=== PATIENT | male | born 1935 | race Caucasian/White ===

== ENCOUNTER → 2019-04-01 | Day surgery (SDC) | payer MEDICARE ==
[2019-03-28 11:06] LABS: BASOPHILS % 0.6 % (0.0-1.0); EOSINOPHILS % 0.6 % (0.0-6.0); HEMOGLOBIN 12.3 g/dL (14.0-18.0); LYMPHOCYTES # (AUTO) 1.4 (1.0-3.2); MEAN CORPUSCULAR HEMOGLOBIN 31.2 pg (28-32); MEAN CORPUSCULAR HGB CONC 34.2 g/dL (31-35); MEAN CORPUSCULAR VOLUME 91.4 fL (81-99); MONOCYTES # (AUTO) 0.6 (0.2-0.8); MONOCYTES % 8.4 % (4.4-11.3); NEUTROPHILS # (AUTO) 4.8 (2.1-6.9); NEUTROPHILS % 69.1 % (38.7-80.0); PLATELET COUNT 155 x10e3/uL (140-360); RED BLOOD COUNT 3.94 x10e6/uL (4.3-5.7)
[2019-03-28 11:27] LABS: INR 0.99; PROTHROMBIN TIME 13.6 seconds (11.9-14.5)
[2019-03-28 11:35] LABS: ALANINE AMINOTRANSFERASE 15 IU/L (0-55); ALBUMIN 4.1 g/dL (3.5-5.0); ALBUMIN/GLOBULIN RATIO 1.2 (0.8-2.0); ALKALINE PHOSPHATASE 69 IU/L (40-150); ANION GAP 14.4 mmol/L (8-16); BLOOD UREA NITROGEN 15 mg/dL (7-26); BUN/CREATININE RATIO 16 (6-25); CALCIUM 10.2 mg/dL (8.4-10.2); CARBON DIOXIDE 27 mmol/L (22-29); CHLORIDE 102 mmol/L (98-107); CREATININE, SERUM 0.92 mg/dL (0.72-1.25); EST GLOMERULAR FILTRATION RATE > 60 ML/MIN (60-); GLUCOSE 87 mg/dL (74-118); POTASSIUM 3.4 mmol/L (3.5-5.1); SODIUM 140 mmol/L (136-145)
[2019-03-28 11:36] LABS: CHOL/HDL RATIO 2.7 (3.9-4.7)
[~2019-04-01] VITALS: Ht 165.1 cm; Wt 62.6 kg
[~2019-04-01] MED LIST: ALPRAZOLAM 0.5 MG TAB ONE; ARICEPT5 MG PO; ATORVASTATIN CA10 MG PO; CLOPIDOGREL75 MG PO; DIPHENHYDRAMINE HCL 25 MG CAP ONE; FENTANYL CITRATE/PF 100MCG/2 ML INJ ONE; FINASTERIDE5 MG PO; FLOMAX0.4 MG PO; HEPARIN SOD (PORCINE) 1000 UNIT/ML 30ML ONE; HEPARIN SOD/SOD CHLORIDE 2,000 ML ONE; HYDRALAZINE HCL25 MG PO; IOPAMIDOL 370 MG/ML 200 ML INFUS..BTL INJ ONE; LIDOCAINE HCL 2% LOCAL 20 ML VIAL ONE; MELOXICAM7.5 MG PO; METOPROLOL SUCC50 MG PO; MIDAZOLAM HCL 2 MG/2 ML VIAL ONE; MIRTAZAPINE7.5 MG PO; NAMENDA10 MG PO; PANTOPRAZOLE SO40 MG PO; PRESERVISION T1 EACH PO; SODIUM CHLORIDE 0.9% 1000ML 1,000 ML ONE; VERAPAMIL HCL 2.5 MG/ML 2 ML VIAL ONE
--- OUTSIDE RECORDS SUMMARY | 2019-04-01 11:07 | XMS REPORT | Clinical Summary ---
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 Last Filed Vital Signs Not on file Plan of Treatment Health Maintenance Due Date Last Done Comments SHINGLES VACCINES (#1) 1984 65+ PNEUMOCOCCAL VACCINE 1999 (1 of 2 - PCV13) INFLUENZA VACCINE 04/10/2019 Procedures Comments Procedure Name Priority Date/Time Associated Diagnosis CALPROTECTIN, STOOL Routine 07/27/2018 Chronic universal 11:31 AM TRAFFIC [employer]PERVIS[employer] ulcerative colitis (HCC) Benign hypertension Constipation, unspecified constipation type Diarrhea, unspecified type ESTIMATED GFR Routine 07/25/2018 4:00 PM TRAFFIC SUPER[employer]OR COMPREHENSIVE METABOLIC Routine 07/25/2018 Chronic ulcerative PANEL 4:00 PM TRAFFIC SUPER[employer] enterocolitis without complication (HCC) Essential hypertension, malignant Constipation, unspecified constipation type Diarrhea of presumed infectious origin SEDIMENTATION RATE Routine 07/25/2018 Chronic ulcerative 4:00 PM TRAFFIC SUPER[employer] enterocolitis without complication (HCC) Essential hypertension, malignant Constipation, unspecified constipation type Diarrhea of presumed infectious origin C-REACTIVE PROTEIN Routine 07/25/2018 Chronic ulcerative 4:00 PM TRAFFIC SUPER[employer]OR enterocolitis without complication (HCC) Essential hypertension, malignant Constipation, unspecified constipation type Diarrhea of presumed infectious origin HC COMPLETE BLD COUNT Routine 07/25/2018 Chronic ulcerative W/AUTO DIFF 4:00 PM TRAFFIC SUPERVISOR enterocolitis without complication (HCC) Essential hypertension, malignant Constipation, unspecified constipation type Diarrhea of presumed infectious origin after 03/31/2018 Results * Calprotectin, stool (07/27/2018 11:31 AM TRAFFIC SUPERVISOR) Calprotectin, 61 (H) <=50 ug/g [facility] stool Comment: INTERPRETIVE INFORMATION: Calprotectin, Fecal 50 ug/g or less: Normal 51-120 ug/g: Borderline elevated, test should be re-evaluated in 4-6 weeks. 121 ug/g or greater: Abnormal Performed by [facility], [address] [place] [id number] [email or web address], Wilder Gomez MD - Lab. Director Specimen Serum Performing Organization Address City/[facility]/Zipcode Phone Number [facility] [address] [place] [address] [facility] [address] [place] [address] * Estimated GFR (07/25/2018 4:00 PM TRAFFIC SUPERVISOR) Pathologist [facility] Estimated GFR 70 mL/min/1.73 m2 [facility] Comment: TENRIISM [facility] rpretation G1 >=90 Normal or high G2 60-89Mildly decreased [id number] Mildly to moderately decreased [id number] Moderately to severely decreased G4 15-29Severely decreased G5 <15Kidney failure The eGFR was calculated using the Chronic Kidney Disease Epidemiology Collaboration (CKD-EPI) equation. Interpretation is based on recommendations of the National Kidney Foundation-Kidney Disease Outcomes Quality Initiative (NKF-KDOQI) published in 2014. Specimen Plasma specimen Performing Organization Address City/State/Zipcode Phone Number [facility] DEPARTMENT OF [address] [place] [address] PATHOLOGY AND GENOMIC MEDICINE [facility] TENRIISM [address] [place] [address] * Sedimentation rate (07/25/2018 4:00 PM TRAFFIC SUPERVISOR) Pathologist [facility] Sedimentation 11 (H) 0 - 10 mm/hr [facility] Specimen Blood Performing Organization Address City/State/Zipcode Phone Number [facility] DEPARTMENT [address] [address] PATHOLOGY AND GENOMIC MEDICINE [address] * CBC with platelet and differential (07/25/2018 4:00 PM TRAFFIC SUPERVISOR) [facility] WBC 7.11 4.50 - 11.00 k/uL [facility] RBC 4.25 (L) 4.40 - 6.00 m/uL [facility] HGB 12.8 (L) 14.0 - 18.0 g/dL [facility] HCT 39.0 (L) 41.0 - 51.0 % [facility] MCV 91.8 82.0 - 100.[address] [facility] MCH 30.1 27.0 - 34.[address] [facility] MCHC 32.8 31.0 - 37.0 g/dL [facility] RDW - SD 46.5 37.0 - 55.[address] [facility] MPV 10.5 8.8 - 13.[address] [facility] Platelet count 155 150 - 400 k/uL [facility] Nucleated RBC 0.00 /[address] [facility] Neutrophils 68.1 39.0 - 69.0 % [facility] Lymphocytes 20.8 (L) 25.0 - 45.0 % [facility] Monocytes 9.4 0.0 - 10.0 % [facility] Eosinophils 0.8 0.0 - 5.0 % [facility] Basophils 0.6 0.0 - 1.0 % [facility] Immature 0.3Comment: "Immature 0.0 - 1.0 % [facility] granulocytes granulocytes" (promyelocytes, TENRIISM myelocytes, metamyelocytes) HOSPITAL Specimen Blood Performing Organization Address City/[facility]/Zipcode Phone Number [facility] DEPARTMENT OF [address] [place] [id number] PATHOLOGY AND GENOMIC MEDICINE [address] * C-reactive protein (07/25/2018 4:00 PM TRAFFIC SUPERVISOR) [facility] CRP <0.30 0.00 - 0.50 mg/dL [facility] Specimen Plasma specimen Performing Organization Address City/State/Zipcode Phone Number [facility] DEPARTMENT OF [address] [place] [phone] PATHOLOGY AND GENOMIC MEDICINE [address] * Comprehensive metabolic panel (07/25/2018 4:00 PM TRAFFIC SUPERVISOR) Sodium 138 135 - 148 mEq/L [facility] Potassium 3.1 (L) 3.5 - 5.0 mEq/L [facility] Chloride 96 (L) 98 - 112 mEq/L [facility] CO2 29 24 - 31 mEq/L [facility] Anion gap 13@ANIO 7 - 15 mEq/L [facility] BUN 17 8 - 23 mg/dL [facility] Creatinine 0.99 0.70 - 1.20 mg/dL [facility] Glucose 97 65 - 99 mg/dL [facility] Calcium 10.1 8.8 - 10.2 mg/dL [facility] Protein 7.3 6.3 - 8.3 g/dL [facility] Comment: [facility] HOSPITAL 4.6-7.0 g/dL 1 week 4.4-7.6 g/dL 7 months-1year 5.1-7.3 g/dL 1-2 years5.6-7 .5 g/dL >3 years6.0-8 .0 g/dL 18-150 6.3-8.3 g/dL Albumin 4.0 3.5 - 5.0 g/dL [facility] A/G ratio 1.2 0.7 - 3.8 [facility] Alkaline 75 40 - 129 U/L [facility] phosphatase [facility] AST 24 10 - 50 U/L [facility] ALT 24 5 - 50 U/L [facility] Total bilirubin 0.7 0.0 - 1.2 mg/dL [facility] Specimen Plasma specimen Performing Organization Address City/State/Zipcode Phone Number [facility] DEPARTMENT OF [address] [place] [address] PATHOLOGY [place] [address] HOSPITAL after 03/31/2018 Insurance Type Payer Benefit Subscriber ID Effective Phone Address Plan / Dates Group Commercial AARP AARP xxxxxxxxxxx [id number] SUPPLEMENT resent Medicare MEDICARE MEDICARE xxxxxxxxxxx 1999- [place], PART A AND Present [place] Advance Directives Patient has advance care planning documents on file. For more information, neymar lord contact: [place] [address] [place] [address]
[2019-04-01 11:45] VITALS: BP 172/78
[2019-04-01 15:35] VITALS: BP 170/78
--- NOTE | 2019-04-01 15:38 | NUR ---
9951 bedside report received from LUCILA Potter.[email or web address] [facility] diagnostic only tx RX for dc at 5pm today Dr Stafford pt. Alert oriented and appropriate, PERRLA, respirations even and unlabored to room air. Pulses x4 extremities equal and strong. Pedal pulses PT/DP x4 and marked. Cap fill brisk < 3 sec. Skin warm and dry integrity appears D/I IV 20g to left hand presents healthy w/o s/s of infiltration or complaint. Abdomen soft and supple. pt offered toileting, denies need to urinate or defecate. No personal affects with patient. Family Jose Raul Nephew at bedside. Pt and family verbalizes understanding of POC. Currently w/o complaint of pain or need. Assisted po intake. jose/lucila
[2019-04-01 15:45] VITALS: BP 172/79
[2019-04-01 16:00] VITALS: BP 170/76
[2019-04-01 16:30] VITALS: BP 173/75
--- NOTE | 2019-04-01 17:00 | NUR ---
[address] Stafford bp still a little high 178/93. Verified with manual cuff. Rt Groin site healthy HOB elevated ok to dc home on home medication. ds/rn
--- NOTE | 2019-04-01 18:00 | NUR ---
1800Pt meets DC criteria. Rt Mynx closure site assessed for s/s of complication and presence of hematoma. warm, dry, no discolor, and pulses present. IV removed from left hand. Distal tip appears intact. VS WNL. Pt denies pain, sob, or need at this time. Family at bedside Nephderek Blunt. Review of discharge paperwork and follow up instructions. verbalized understanding. Pt to wheelchair and transported to front of hospital. Transferred to private vehicle under own strength w/o incident with DC paperwork in hand. -ds/rn
--- NOTE | 2019-04-04 06:57 | Operative Report ---
DATE OF PROCEDURE: 04/01/2019 SURGEON: Compa Stafford MD INDICATIONS: Coronary artery disease, abnormal stress test. PROCEDURES PERFORMED: 1. Left heart catheterization, selective coronary angiography. 2. Deployment of right groin Mynx closure device. COMPLICATIONS: None. RECOMMENDATIONS: Medical therapy. DESCRIPTION OF PROCEDURE: Access was obtained in the right femoral artery. A 6-St Helenian sheath was placed. Coronary angiography demonstrated heavily calcified coronary vessels, left main 30% stenosis. Stent with mild in-stent restenosis in the proximal and mid left anterior descending artery. First diagonal branch was jailed within the stent with 80% ostial stenosis. Circumflex stent, 50% stenosis. Right coronary artery, 50% stenosis, remaining vessels and diffuse 30% to 50% stenosis. LV end-diastolic pressure of 22. No gradient across the aortic valve on pullback. Right groin repaired using Mynx closure device. The patient discharged home same day. MD JANEL Barron/MODL /[id number]
--- NOTE | 2019-05-13 11:01 | Operative Report ---
DATE OF PROCEDURE: 04/01/2019 SURGEON: Compa Stafford MD INDICATION: Coronary artery disease, abnormal stress test. PROCEDURES PERFORMED: 1. Left heart catheterization, selective coronary angiography. 2. Deployment of right groin Mynx closure device. COMPLICATIONS: None. RECOMMENDATIONS: Medical therapy. DESCRIPTION OF PROCEDURE: Access obtained in the right femoral artery. A 6-Welsh sheath was placed. Heavily calcified coronary vessels were noted. Left main 20% to 30% stenosis, stent in the left anterior descending artery was patent, 80% 1st diagonal artery stenosis, which was jailed within the stent as circumflex stent, 50% in-stent restenosis. Right coronary artery heavily calcified, 50% stenosis. LV end-diastolic pressure of 22. No intervention deemed necessary. Right groin was repaired using Mynx closure device. The patient was discharged home same day. Compa Stafford MD [facility]/MODL /[id number]
== END | disposition home or self-care (01) ==
LOC: CATH LAB 10:59
PROVIDERS: ATTEND Internal Medicine Interventional Cardiology
DX: I25.10 Atherosclerotic heart disease of native coronary artery without angina pectoris (principal); R94.39 Abnormal result of other cardiovascular function study; Z95.5 Presence of coronary angioplasty implant and graft; I10 Essential (primary) hypertension; Z01.812 Encounter for preprocedural laboratory examination; Z79.02 Long term (current) use of antithrombotics/antiplatelets
CPT/HCPCS: 36415; 80053; 80061; 85025; 85610; 93458; C1760; C1769; J1644; J2001; J2250; J3010; J7030; Q9967

== ENCOUNTER 2020-11-02 10:22 | Observation (INO) | payer MEDICARE ==
[2020-11-01 20:33] VITALS: BP 115/73
[~2020-11-02] VITALS: Ht 170.2 cm; Wt 58.7 kg
[~2020-11-02 10:22] MED LIST changes: -ALPRAZOLAM 0.5 MG TAB ONE; -DIPHENHYDRAMINE HCL 25 MG CAP ONE; -FENTANYL CITRATE/PF 100MCG/2 ML INJ ONE; -HEPARIN SOD (PORCINE) 1000 UNIT/ML 30ML ONE; -HEPARIN SOD/SOD CHLORIDE 2,000 ML ONE; -IOPAMIDOL 370 MG/ML 200 ML INFUS..BTL INJ ONE; -LIDOCAINE HCL 2% LOCAL 20 ML VIAL ONE; -MIDAZOLAM HCL 2 MG/2 ML VIAL ONE; -SODIUM CHLORIDE 0.9% 1000ML 1,000 ML ONE; -VERAPAMIL HCL 2.5 MG/ML 2 ML VIAL ONE
[2020-11-02] MEDS ORDERED: TETANUS/DIPHTHERIA TOX ADULT 0.5 ML SYR IM ONE (11:15)
[2020-11-02 12:42] LABS: BASOPHILS % 0.2 % (0.0-1.0); HEMATOCRIT 46.5 % (38.2-49.6); HEMOGLOBIN 15.8 g/dL (14.0-18.0); LYMPHOCYTES # (AUTO) 1.1 (1.0-3.2); LYMPHOCYTES % 6.1 % (18.0-39.1); MEAN CORPUSCULAR HEMOGLOBIN 30.9 pg (28-32); MEAN CORPUSCULAR VOLUME 90.8 fL (81-99); MONOCYTES # (AUTO) 1.7 (0.2-0.8); MONOCYTES % 9.6 % (4.4-11.3); NEUTROPHILS # (AUTO) 14.5 (2.1-6.9); NEUTROPHILS % 83.6 % (38.7-80.0); PLATELET COUNT 155 x10e3/uL (140-360); RED BLOOD COUNT 5.12 x10e6/uL (4.3-5.7); RED CELL DISTRIBUTION WIDTH 13.6 % (11.7-14.4)
[2020-11-02 13:27] LABS: ALANINE AMINOTRANSFERASE 55 IU/L (0-55); ALBUMIN 4.1 g/dL (3.5-5.0); ALBUMIN/GLOBULIN RATIO 1.1 (0.8-2.0); ALKALINE PHOSPHATASE 93 IU/L (40-150); ANION GAP 18.3 mmol/L (8-16); BLOOD UREA NITROGEN 32 mg/dL (7-26); BUN/CREATININE RATIO 28 (6-25); CALCIUM 10.1 mg/dL (8.4-10.2); CARBON DIOXIDE 25 mmol/L (22-29); CHLORIDE 97 mmol/L (98-107); CREATININE, SERUM 1.13 mg/dL (0.72-1.25); EST GLOMERULAR FILTRATION RATE > 60 ML/MIN (60-); GLUCOSE 98 mg/dL (74-118); POTASSIUM 3.3 mmol/L (3.5-5.1); SODIUM 137 mmol/L (136-145)
[2020-11-02 14:58] LABS: CLARITY,URINE SL CLOUDY (CLEAR); COLOR,URINE STRAW (YELLOW); KETONES,URINE 2+ (NEGATIVE); LEUKOCYTE ESTERASE ,URINE NEGATIVE (NEGATIVE); NITRITE,URINE NEGATIVE (NEGATIVE); PROTEIN,URINE DIPSTICK >=300 (NEGATIVE); URINE UROBILINOGEN 0.2 mg/dL (0.2 - 1)
[2020-11-02 15:07] LABS: BACTERIA,URINE RARE /HPF; RBC,URINE >50 /HPF (0-5); WBC,URINE (MAN) 0-5 /HPF (0-5)
[2020-11-02] MEDS ORDERED: LACTATED RINGER'S 1,000 ML INJ ONE (15:15)
[2020-11-02] MEDS ORDERED: ONDANSETRON HCL INJ 2MG/ML 2ML 2 MG/ML VIAL IV PRN (16:15)
[2020-11-02] MEDS ORDERED: HYDRALAZINE HCL 20 MG/ML VIAL IV PRN (16:15)
[2020-11-02] MEDS ORDERED: POLYETHYLENE GLYCOL 3350 17 GM PACK PO PRN (16:15)
[2020-11-02] MEDS ORDERED: ACETAMINOPHEN 325 MG TAB PO PRN (16:15)
[2020-11-02] MEDS: DOCUSATE SODIUM 100 MG CAP PO SCH (17:00)
[2020-11-02] MEDS: SODIUM BICARBONATE IV SCH (17:30)
[2020-11-02] MEDS: DEXTROSE IV SCH (17:30)
[2020-11-02] MEDS: SOD CHL IV SCH (17:30)
[2020-11-02 20:24] VITALS: BP 159/83
[2020-11-02 21:00] VITALS: BP 159/83
[2020-11-02] MEDS: MIRTAZAPINE 15 MG TAB PO SCH (21:00)
[2020-11-02] MEDS: FINASTERIDE 5 MG TAB PO SCH (21:00)
[2020-11-02] MEDS ORDERED: TEMAZEPAM 15 MG CAP PO PRN (21:00)
[2020-11-02] MEDS: TAMSULOSIN HCL 0.4 MG CAP PO SCH (21:00)
[2020-11-02] MEDS: HYDRALAZINE HCL 25 MG TAB PO SCH (21:00)
[2020-11-02] MEDS: DONEPEZIL HCL 5 MG TAB PO SCH (21:00)
[2020-11-02] MEDS: ATORVASTATIN 10 MG TAB PO SCH (21:00)
[2020-11-03] VITALS: BP 151/87
[2020-11-03 04:00] VITALS: BP 114/62
[2020-11-03] MEDS: DEXTROSE IV SCH ×2 (04:30→15:15)
[2020-11-03] MEDS: SODIUM BICARBONATE IV SCH ×2 (04:30→15:15)
[2020-11-03] MEDS: SOD CHL IV SCH ×2 (04:30→15:15)
[2020-11-03 06:38] LABS: BASOPHILS % 0.2 % (0.0-1.0); EOSINOPHILS % 0.1 % (0.0-6.0); HEMATOCRIT 39.4 % (38.2-49.6); HEMOGLOBIN 13.1 g/dL (14.0-18.0); LYMPHOCYTES # (AUTO) 1.2 (1.0-3.2); LYMPHOCYTES % 8.3 % (18.0-39.1); MEAN CORPUSCULAR HEMOGLOBIN 30.3 pg (28-32); MEAN CORPUSCULAR HGB CONC 33.2 g/dL (31-35); MONOCYTES # (AUTO) 1.1 (0.2-0.8); MONOCYTES % 8.2 % (4.4-11.3); NEUTROPHILS # (AUTO) 11.5 (2.1-6.9); NEUTROPHILS % 82.6 % (38.7-80.0); PLATELET COUNT 126 x10e3/uL (140-360); RED BLOOD COUNT 4.33 x10e6/uL (4.3-5.7); RED CELL DISTRIBUTION WIDTH 13.9 % (11.7-14.4)
[2020-11-03 06:59] LABS: ANION GAP 15.4 mmol/L (8-16); CALCIUM 8.9 mg/dL (8.4-10.2); CREATININE, SERUM 1.35 mg/dL (0.72-1.25); POTASSIUM 3.4 mmol/L (3.5-5.1)
[2020-11-03] MEDS ORDERED: POTASSIUM CHLORIDE 10MEQ EA PO ONE ×2 (07:15→08:00)
[2020-11-03] MEDS ORDERED: PANTOPRAZOLE SOD 40 MG TABEC PO SCH (07:30)
[2020-11-03] MEDS ORDERED: FUROSEMIDE INJ 10 MG/ML 4 ML VIAL IV ONE (08:00)
[2020-11-03 08:01] VITALS: BP 129/62
[2020-11-03 08:16] VITALS: BP 129/62
[2020-11-03 08:20] LABS: MAGNESIUM 2.1 MG/DL (1.3-2.1); PHOSPHORUS 3.8 MG/DL (2.3-4.7)
[2020-11-03 08:40] LABS: THYROID STIMULATING HORMONE 5.097 uIU/mL (0.350-4.940)
[2020-11-03] MEDS ORDERED: METOPROLOL SUCCINATE 50 MG TAB XL PO SCH (09:00)
[2020-11-03] MEDS ORDERED: FAMOTIDINE 20 MG TAB PO SCH (09:00)
[2020-11-03] MEDS: MEMANTINE 10 MG TAB PO SCH ×2 (10:29→17:25)
[2020-11-03] MEDS: HYDRALAZINE HCL 25 MG TAB PO SCH ×3 (10:29→21:46)
[2020-11-03] MEDS: DOCUSATE SODIUM 100 MG CAP PO SCH ×2 (10:29→17:25)
[2020-11-03 11:55] VITALS: BP 123/67
[2020-11-03 16:26] VITALS: BP 125/67
[2020-11-03] MEDS: ATORVASTATIN 10 MG TAB PO SCH (21:46)
[2020-11-03] MEDS: FINASTERIDE 5 MG TAB PO SCH (21:46)
[2020-11-03] MEDS: TAMSULOSIN HCL 0.4 MG CAP PO SCH (21:46)
[2020-11-03] MEDS: DONEPEZIL HCL 5 MG TAB PO SCH (21:46)
[2020-11-03] MEDS: MIRTAZAPINE 15 MG TAB PO SCH (21:46)
[2020-11-04] MEDS ORDERED: BACITRACIN ZINC 15 GM OINT TOP SCH (09:00)
== END 2020-11-03 22:24 ==
LOC: ER 11:45 → ERHOLD 15:09 → MED/SURG3 20:45
PROVIDERS: ADMIT Internal Medicine; ATTEND Internal Medicine
DX: M62.82 Rhabdomyolysis (principal); W19.XXXA Unspecified fall, initial encounter; Z91.81 History of falling; Y92.410 Unspecified street and highway as the place of occurrence of the external cause; G30.9 Alzheimer's disease, unspecified; F02.80 Dementia in other diseases classified elsewhere, unspecified severity, without behavioral disturbance, psychotic disturbance, mood disturbance, and anxiety; E78.5 Hyperlipidemia, unspecified; K21.9 Gastro-esophageal reflux disease without esophagitis; Z20.822 Contact with and (suspected) exposure to COVID-19; Z74.09 Other reduced mobility; N40.0 Benign prostatic hyperplasia without lower urinary tract symptoms
CPT/HCPCS: 36415 ×2; 70450; 71045; 72170; 73080; 73562; 80048; 80053; 81001; 82550 ×2; 82948; 83036; 83735; 83880; 84100; 84443; 84484; 85025 ×2; 90471; 90714; 92526; 92610; 93005; 93306; 97116; 97162; 99251; 99284; G0378 ×2; J1940; J7121; S0164; U0002